=== PATIENT | female | born 1950 | race Caucasian/White ===

== ENCOUNTER 2019-12-06 11:32 | Outpatient (CLI) | payer BC, SELFPAY ==
[2019-12-06 12:12] LABS: Alanine Aminotransferase 20 U/L (4-35); Aspartate Amino Transferase 27 U/L (14-36)
== END 2019-12-06 11:33 | disposition home or self-care (01) ==
PROVIDERS: Visit Provider Podiatrist Foot & Ankle Surgery
DX: B35.1 Tinea unguium (principal)
CPT/HCPCS: 36415; 84450; 84460

== ENCOUNTER 2020-08-29 14:17 | Outpatient (CLI) | payer BC, SELFPAY | END 2020-08-29 14:18 | disposition home or self-care (01) | LOC: ANHCOVIDVC 14:17 | DX: Z23 Encounter for immunization (principal) | CPT/HCPCS: 0001A; 91300 ==

== ENCOUNTER 2020-09-19 14:12 | Outpatient (CLI) | payer BC, SELFPAY | END 2020-09-19 14:13 | disposition home or self-care (01) | LOC: ANHCOVIDVC 14:12 | DX: Z23 Encounter for immunization (principal) | CPT/HCPCS: 0002A; 91300 ==